=== PATIENT | female | born 1995 | race Two or more races ===

== ENCOUNTER 2019-08-03 04:11 | Inpatient (IN) | payer SELFPAY ==
[2019-08-03] MEDS ORDERED: Nalbuphine 10 MG/1 ML Vial IVPUSH PRN (04:35)
[2019-08-03] MEDS ORDERED: Sodium Chloride 0.9% 10 ML SDV IV PRN (04:35)
[2019-08-03] MEDS ORDERED: Sodium Chloride 0.9% 10 ML Syringe FLUSH PRN (04:35)
[2019-08-03] MEDS ORDERED: Butorphanol 1 MG/ML SDV IVPUSH PRN (04:35)
[2019-08-03] MEDS ORDERED: Tranexamic Acid 1,000 MG in Sodium Chloride 0.9% 100 ML IV PRN (04:35)
[2019-08-03] MEDS ORDERED: Lidocaine 1% 50 ML MDV INJECT PRN (04:35)
[2019-08-03] MEDS ORDERED: Water For Irrigation,Sterile 1,000 ML Container IRR PRN (04:35)
[2019-08-03] MEDS ORDERED: Misoprostol 200 MCG Tab PO PRN (04:35)
[2019-08-03] MEDS ORDERED: Methylergonovine 0.2 MG/1 ML Amp IM PRN (04:35)
[2019-08-03] MEDS ORDERED: Carboprost Tromethamine 250 MCG/1 ML Amp IM PRN (04:35)
[2019-08-03] MEDS ORDERED: Oxytocin/0.9 % Sodium Chloride 30 UNIT/500 ML BAG IV SCH ×2 (04:45→10:30)
[2019-08-03] MEDS ORDERED: Ondansetron 4 MG/2 ML SDV IVPUSH PRN (06:28)
[2019-08-03] MEDS: Lactated Ringers 1,000 ML IV SCH ×2 (08:35→09:36)
--- NOTE | 2019-08-03 09:00 | PCM.LDHP ---
L&D History of Present Illness - General Date of Service: 08/03/19 Admit Problem/Dx: Patient Status Order with Admit Dx/Problem 08/03/19 04:20 Patient Status [ADT] Routine 08/03/19 04:35 Patient Status [ADT] Routine Admission Diagnosis/Problem Admission Diagnosis/Problem -related examination Source of Information: Patient History Limitations: Reports: No Limitations - History of Present Illness Pain Score: 5 Improves with: Reports: None Worsens with: Reports: None Associated Symptoms: Reports: N - Related Data Allergies/Adverse Reactions: Allergies Allergy/AdvReac Type Severity Reaction Status Date / Time No Known Allergies Allergy Verified 08/03/19 04:19 Past Medical History - Past Health History Medical/Surgical History: Denies Medical/Surgical History Social & Family History - Tobacco Use Smoking Status *Q: Never Smoker Second Hand Smoke Exposure: No - Caffeine Use Caffeine Use: Reports: Soda - Recreational Drug Use Recreational Drug Use: No H&P Review of Systems - Review of Systems: Review Of Systems: See Below General: Reports: No Symptoms HEENT: Reports: No Symptoms Pulmonary: Reports: No Symptoms Cardiovascular: Reports: No Symptoms Gastrointestinal: Reports: No Symptoms Genitourinary: Reports: No Symptoms Musculoskeletal: Reports: No Symptoms Skin: Reports: No Symptoms Psychiatric: Reports: No Symptoms Neurological: Reports: No Symptoms Hematologic/Lymphatic: Reports: No Symptoms Immunologic: Reports: No Symptoms L&D Exam - Exam Exam: See Below - Vital Signs Weight: 56.699 kg - OB Specific Fundal Height In cm: 37 Contraction Intensity: Moderate Movement: Active Heart Tones: Present Presentation: Vertex - Teran Score Teran Score Cervix Position: Anterior Teran Score Consistency: Soft Teran Score Effacement: >80% Teran Score Dilation: 3-4 cm Teran Score 's Station: -2 Teran Score Total: 10 - Exam General: Alert, Oriented HEENT: PERRLA, Conjunctiva Clear, EACs Clear, EOMI, Hearing Intact, Mucosa Moist & Volo, Nares Patent, Normal Nasal Septum, Posterior Pharynx Clear, TMs Clear Neck: Supple, Trachea Midline Lungs: Clear to Auscultation, Normal Respiratory Effort Cardiovascular: Regular Rate, Regular Rhythm GI/Abdominal Exam: Normal Bowel Sounds, Soft, Non-Tender, No Organomegaly, No Distention, No Abnormal Bruit, No Mass, Pelvis Stable Rectal Exam: Normal Exam, Normal Rectal Tone Genitourinary: Normal external exam, Normal bimanual exam, Normal speculum exam Back Exam: Normal Inspection, Full Range of Motion Extremities: Normal Inspection, Normal Range of Motion, Non-Tender, No Pedal Edema, Normal Capillary Refill Skin: Warm, Dry, Intact Neurological: Cranial Nerves Intact, Reflexes Equal Bilateral Psychiatric: Alert, Normal Affect, Normal Mood - Patient Data Lab Results Last 24 hrs: Laboratory Results - last 24 hr 08/03/19 08/03/19 Range/Units 04:58 04:58 WBC 7.34 (4.0-11.0) K/uL RBC 3.72 L (4.30-5.90) M/uL Hgb 10.2 L (12.0-16.0) g/dL Hct 31.3 L (36.0-46.0) % MCV 84.1 (80.0-98.0) fL MCH 27.4 (27.0-32.0) pg MCHC 32.6 (31.0-37.0) g/dL RDW Std Deviation 40.4 (28.0-62.0) fl RDW Coeff of Mirtha 13 (11.0-15.0) % Plt Count 184 (150-400) K/uL MPV 10.40 (7.40-12.00) fL Nucleated RBC % 0.0 /100WBC Nucleated RBCs # 0 K/uL Blood Type A POSITIVE Antibody Screen NEGATIVE Result Diagrams: 08/03/19 04:58 Problem List Initiated/Reviewed/Updated: Yes Orders Last 24hrs: Active Orders 24 hr Category Date Time Status Patient Status [ADT] Routine ADT 08/03/19 04:35 Active Heart Tones [RC] CONTINUOUS Care 08/03/19 04:35 Active Non Stress Test [RC] PER UNIT ROUTINE Care 08/03/19 04:20 Active Non Stress Test [RC] PER UNIT ROUTINE Care 08/03/19 04:35 Active May Shower [RC] ASDIRECTED Care 08/03/19 04:35 Active Notify Provider [RC] PRN Care 08/03/19 04:35 Active Up ad Ora [RC] ASDIRECTED Care 08/03/19 04:20 Active Up ad Ora [RC] ASDIRECTED Care 08/03/19 04:35 Active Vaginal Exam [RC] Click to Edit Care 08/03/19 04:20 Active Vaginal Exam [RC] PRN Care 08/03/19 04:35 Active Vital Signs [RC] PER UNIT ROUTINE Care 08/03/19 04:20 Active Vital Signs [RC] PER UNIT ROUTINE Care 08/03/19 04:35 Active Butorphanol [Stadol] Med 08/03/19 04:35 Active 1 mg IVPUSH ASDIRECTED PRN Carboprost Tromethamine [Hemabate DS] Med 08/03/19 04:35 Active 250 mcg IM ASDIRECTED PRN Lactated Ringers [Ringers, Lactated] 1,000 ml Med 08/03/19 04:45 Active IV ASDIRECTED Lidocaine 1% [Xylocaine 1%] Med 08/03/19 04:35 Active 50 ml INJECT ONETIME PRN Methylergonovine [Methergine] Med 08/03/19 04:35 Active 0.2 mg IM ASDIRECTED PRN Nalbuphine [Nubain] Med 08/03/19 04:35 Active 10 mg IVPUSH ASDIRECTED PRN Ondansetron [Zofran] Med 08/03/19 06:28 Active 4 mg IVPUSH Q6H PRN Oxytocin/0.9 % Sodium Chloride [Oxytocin 30 Unit/500 ML Med 08/03/19 04:45 Active -NS] 30 unit in 500 ml IV TITRATE Sodium Chloride 0.9% [Normal Saline] Med 08/03/19 04:35 Active 10 ml IV ASDIRECTED PRN Sodium Chloride 0.9% [Saline Flush] Med 08/03/19 04:35 Active 10 ml FLUSH ASDIRECTED PRN Tranexamic Acid [Cyklokapron] 1,000 mg Med 08/03/19 04:35 Active Sodium Chloride 0.9% [Normal Saline] 100 ml IV ONETIME Water For Irrigation,Sterile [Sterile Water for Med 08/03/19 04:35 Active Irrigation] 1,000 ml IRR ASDIRECTED PRN miSOPROStol [Cytotec] Med 08/03/19 04:35 Active 200 mcg PO ONETIME PRN Scalp Electrode [WOMSER] Per Unit Routine Oth 08/03/19 04:35 Ordered Peripheral IV Insertion Adult [OM.PC] Routine Oth 08/03/19 04:35 Ordered Resuscitation Status Routine Resus Stat 08/03/19 04:20 Ordered Medication Orders Butorphanol Tartrate (Stadol) 1 mg IVPUSH ASDIRECTED PRN PRN Reason: Pain Carboprost Tromethamine (Hemabate Ds) 250 mcg IM ASDIRECTED PRN PRN Reason: Post Hemorrhage Tranexamic Acid 1,000 mg/ (Sodium Chloride) 110 mls @ 660 mls/hr IV ONETIME PRN PRN Reason: Bleeding Lactated Ringer's (Ringers, Lactated) 1,000 mls @ 150 mls/hr IV ASDIRECTED YEIMY Oxytocin/Sodium Chloride (Oxytocin 30 Unit/500 Ml-Ns) 30 unit in 500 mls @ 999 mls/hr IV TITRATE YEIMY Lidocaine HCl (Xylocaine 1%) 50 ml INJECT ONETIME PRN PRN Reason: Laceration repair Methylergonovine Maleate (Methergine) 0.2 mg IM ASDIRECTED PRN PRN Reason: Post Hemorrhage Misoprostol (Cytotec) 200 mcg PO ONETIME PRN PRN Reason: Post Hemorrhage Nalbuphine HCl (Nubain) 10 mg IVPUSH ASDIRECTED PRN PRN Reason: Pain (severe 7-10) Last Admin: 08/03/19 06:04 Dose: 10 mg Ondansetron HCl (Zofran) 4 mg IVPUSH Q6H PRN PRN Reason: Nausea/Vomiting Last Admin: 08/03/19 06:46 Dose: 4 mg Sodium Chloride (Saline Flush) 10 ml FLUSH ASDIRECTED PRN PRN Reason: Keep Vein Open Last Admin: 08/03/19 06:05 Dose: 10 ml Sodium Chloride (Normal Saline) 10 ml IV ASDIRECTED PRN PRN Reason: IV Use Sterile Water (Sterile Water For Irrigation) 1,000 ml IRR ASDIRECTED PRN PRN Reason: delivery Assessment/Plan Comment:: IUP term with SROM in early labor
--- NOTE | 2019-08-03 09:41 | PCM.PREANE ---
Preanesthetic Assessment - Anesthesia/Transfusion/Family Hx Anesthesia History: No Prior Anesthesia Family History of Anesthesia Reaction: No Transfusion History: Prior Transfusion Without Reaction - Review of Systems General: No Symptoms Pulmonary: No Symptoms Cardiovascular: No Symptoms Gastrointestinal: No Symptoms Neurological: No Symptoms Other: Reports: None - Physical Assessment Height: 5 ft Weight: 56.699 kg ASA Class: 2 Mental Status: Alert & Oriented x3 Airway Class: Mallampati = 2 Dentition: Reports: Normal Dentition Thyro-Mental Finger Breadths: 2 Mouth Opening Finger Breadths: 2 ROM/Head Extension: Full Lungs: Clear to Auscultation, Normal Respiratory Effort Cardiovascular: Regular Rate, Regular Rhythm - Lab Values: Laboratory Last Values WBC 7.34 K/uL (4.0-11.0) 08/03/19 04:58 RBC 3.72 M/uL (4.30-5.90) L 08/03/19 04:58 Hgb 10.2 g/dL (12.0-16.0) L 08/03/19 04:58 Hct 31.3 % (36.0-46.0) L 08/03/19 04:58 MCV 84.1 fL (80.0-98.0) 08/03/19 04:58 MCH 27.4 pg (27.0-32.0) 08/03/19 04:58 MCHC 32.6 g/dL (31.0-37.0) 08/03/19 04:58 RDW Std Deviation 40.4 fl (28.0-62.0) 08/03/19 04:58 RDW Coeff of Mirtha 13 % (11.0-15.0) 08/03/19 04:58 Plt Count 184 K/uL (150-400) 08/03/19 04:58 MPV 10.40 fL (7.40-12.00) 08/03/19 04:58 Nucleated RBC % 0.0 /100WBC 08/03/19 04:58 Nucleated RBCs # 0 K/uL 08/03/19 04:58 Blood Type A POSITIVE 08/03/19 04:58 Antibody Screen NEGATIVE 08/03/19 04:58 - Allergies Allergies/Adverse Reactions: Allergies Allergy/AdvReac Type Severity Reaction Status Date / Time No Known Allergies Allergy Verified 08/03/19 04:19 - Acknowledgements Anesthesia Type Planned: Epidural Pt an Appropriate Candidate for the Planned Anesthesia: Yes Alternatives and Risks of Anesthesia Discussed w Pt/Guardian: Yes Pt/Guardian Understands and Agrees with Anesthesia Plan: Yes PreAnesthesia Questionnaire - Past Health History Medical/Surgical History: Denies Medical/Surgical History HEENT History: Reports: None Cardiovascular History: Reports: Other (See Below) (Tachycardia during 1st , unsure of etiology) Respiratory History: Reports: None Gastrointestinal History: Reports: GERD Genitourinary History: Reports: None 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 Para: 1 LMP (Approximate): Musculoskeletal History: Reports: None Neurological History: Reports: None Psychiatric History: Reports: Anxiety Endocrine/Metabolic History: Reports: None Hematologic History: Reports: Anemia Immunologic History: Reports: None Oncologic (Cancer) History: Reports: None Dermatologic History: Reports: None - Infectious Disease History Infectious Disease History: Reports: None - SUBSTANCE USE Smoking Status *Q: Never Smoker Second Hand Smoke Exposure: No Recreational Drug Use History: No - CURRENT (IN HOUSE) MEDS Current Meds: Current Medications Butorphanol Tartrate (Stadol) 1 mg IVPUSH ASDIRECTED PRN PRN Reason: Pain Carboprost Tromethamine (Hemabate Ds) 250 mcg IM ASDIRECTED PRN PRN Reason: Post Hemorrhage Tranexamic Acid 1,000 mg/ (Sodium Chloride) 110 mls @ 660 mls/hr IV ONETIME PRN PRN Reason: Bleeding Lactated Ringer's (Ringers, Lactated) 1,000 mls @ 150 mls/hr IV ASDIRECTED YEIMY Oxytocin/Sodium Chloride (Oxytocin 30 Unit/500 Ml-Ns) 30 unit in 500 mls @ 999 mls/hr IV TITRATE YEIMY Lidocaine HCl (Xylocaine 1%) 50 ml INJECT ONETIME PRN PRN Reason: Laceration repair Methylergonovine Maleate (Methergine) 0.2 mg IM ASDIRECTED PRN PRN Reason: Post Hemorrhage Misoprostol (Cytotec) 200 mcg PO ONETIME PRN PRN Reason: Post Hemorrhage Nalbuphine HCl (Nubain) 10 mg IVPUSH ASDIRECTED PRN PRN Reason: Pain (severe 7-10) Last Admin: 08/03/19 06:04 Dose: 10 mg Ondansetron HCl (Zofran) 4 mg IVPUSH Q6H PRN PRN Reason: Nausea/Vomiting Last Admin: 08/03/19 06:46 Dose: 4 mg Sodium Chloride (Saline Flush) 10 ml FLUSH ASDIRECTED PRN PRN Reason: Keep Vein Open Last Admin: 08/03/19 06:05 Dose: 10 ml Sodium Chloride (Normal Saline) 10 ml IV ASDIRECTED PRN PRN Reason: IV Use Sterile Water (Sterile Water For Irrigation) 1,000 ml IRR ASDIRECTED PRN PRN Reason: delivery Discontinued Medications Fentanyl/Bupivacaine HCl ([id number]-[id number]-Qf 2 Mcg/Ml-0.125%) Confirm Administered Dose 100 mls @ as directed .ROUTE .[employer]-MED ONE Stop: 08/03/19 09:17
[2019-08-03] MEDS ORDERED: Terbutaline 1 MG/ML SDV SUBCUT PRN (10:23)
[2019-08-03] MEDS ORDERED: Ondansetron 4 MG/2 ML SDV IVPUSH ONE (11:10)
[2019-08-03] MEDS ORDERED: Docusate Sodium 100 MG Cap PO PRN (14:18)
[2019-08-03] MEDS ORDERED: Lanolin 100% Cream 7 GM Tube TOP PRN (14:18)
[2019-08-03] MEDS ORDERED: Acetaminophen 500 MG Tab PO PRN ×2 (14:18)
[2019-08-03] MEDS ORDERED: Benzocaine/Menthol 20%-0.5% Spray 78 GM Cannister TOP PRN (14:18)
[2019-08-03] MEDS ORDERED: Ibuprofen 400 MG Tab PO PRN (14:18)
[2019-08-03] MEDS ORDERED: Witch Hazel Medicated Pads 40/Jar TOP PRN (14:18)
[2019-08-03] MEDS ORDERED: Bisacodyl 10 MG Supp RECTAL PRN (14:18)
--- NOTE | 2019-08-03 14:49 | OR ---
SURGEON: Nick Cesar MD DATE OF PROCEDURE: 08/03/2019 Ms. Willett is 24-year-old primigravida, she is 37+ weeks. She is followed in our clinic primarily by me. The patient did have no complication. Her GBS status is negative. She was admitted in the early labor with spontaneous rupture of the membrane early this morning. At the time of admission, she was 2 cm to 3 cm. Her spontaneous rupture of the membrane was confirmed. Her GBS status was negative. The patient was admitted and she started anca on her own and she progressed to 4 cm complete vertex and -2 station. The patient had at that time epidural anesthesia for labor analgesia. She required some Pitocin for labor augmentation, and then after that she progressed rather rapidly to 6 and then complete and then she was able to accomplish normal spontaneous vaginal delivery of a male fetus, cried immediately. score reported to be 8 and 9. Placenta delivered spontaneous complete and intact without any problem. There was no need for episiotomy. There was no labial, perineal, or vaginal laceration. One nuchal cord was noted at the time of admission, but it was not tight. Estimated blood losswas 250 to 300 mL. heart rate was category 1 through the entire process of labor. There was no complication in this labor and delivery. BOAZ / TEENA /[id number]
[2019-08-03] MEDS: Ibuprofen 800 MG Tab PO PRN (16:39)
[2019-08-04] MEDS: oxyCODONE 5 MG Tab PO PRN ×2 (00:56→05:21)
[2019-08-04] MEDS: Ibuprofen 800 MG Tab PO PRN ×2 (07:52→14:41)
--- NOTE | 2019-08-04 08:51 | PCM.PNPP ---
- General Info Date of Service: 08/04/19 Functional Status: Reports: Pain Controlled - Review of Systems General: Reports: No Symptoms HEENT: Reports: No Symptoms Pulmonary: Reports: No Symptoms Cardiovascular: Reports: No Symptoms Gastrointestinal: Reports: No Symptoms Genitourinary: Reports: No Symptoms Musculoskeletal: Reports: No Symptoms Skin: Reports: No Symptoms Neurological: Reports: No Symptoms Psychiatric: Reports: No Symptoms - General Info Date of Service: 08/04/19 - Patient Data Vital Signs - Most Recent: Last Vital Signs Temp 36.2 C 08/04/19 04:12 Pulse 64 08/04/19 04:12 Resp 16 08/04/19 04:12 BP 95/53 L 08/04/19 04:12 Pulse Ox 97 08/04/19 04:12 Weight - Most Recent: 56.699 kg Lab Results - Last 24 Hours: Laboratory Results - last 24 hr 08/04/19 Range/Units 06:18 Hgb 9.3 L (12.0-16.0) g/dL Hct 29.0 L (36.0-46.0) % Med Orders - Current: Current Medications Acetaminophen (Tylenol Extra Strength) 500 mg PO Q4H PRN PRN Reason: Pain Acetaminophen (Tylenol Extra Strength) 1,000 mg PO Q4H PRN PRN Reason: Pain Last Admin: 08/03/19 19:33 Dose: 1,000 mg Benzocaine/Menthol (Dermoplast Pain Relief 20%-0.5% [place]) 78 gm TOP ASDIRECTED PRN PRN Reason: Perineal Comfort Measure Bisacodyl (Dulcolax) 10 mg RECTAL ONETIME PRN PRN Reason: Constipation Butorphanol Tartrate (Stadol) 1 mg IVPUSH ASDIRECTED PRN PRN Reason: Pain Carboprost Tromethamine (Hemabate Ds) 250 mcg IM ASDIRECTED PRN PRN Reason: Post Hemorrhage Docusate Sodium (Colace) 100 mg PO BID PRN PRN Reason: Constipation Emollient Ointment (Lansinoh Hpa) 0 gm TOP ASDIRECTED PRN PRN Reason: Sore Nipples Tranexamic Acid 1,000 mg/ (Sodium Chloride) 110 mls @ 660 mls/hr IV ONETIME PRN PRN Reason: Bleeding Lactated Ringer's (Ringers, Lactated) 1,000 mls @ 150 mls/hr IV ASDIRECTED YEIMY Last Infusion: 08/03/19 10:30 Dose: 150 mls/hr Oxytocin/Sodium Chloride (Oxytocin 30 Unit/500 Ml-Ns) 30 unit in 500 mls @ 999 mls/hr IV TITRATE YEIMY Oxytocin/Sodium Chloride (Oxytocin 30 Unit/500 Ml-Ns) 30 unit in 500 mls @ 2 mls/hr IV TITRATE YEIMY; Protocol Last Titration: 08/03/19 12:35 Dose: 6 munits/min, 6 mls/hr Ibuprofen (Motrin) 400 mg PO Q4H PRN PRN Reason: Pain Ibuprofen (Motrin) 800 mg PO Q6H PRN PRN Reason: Pain Last Admin: 08/04/19 07:52 Dose: 800 mg Lidocaine HCl (Xylocaine 1%) 50 ml INJECT ONETIME PRN PRN Reason: Laceration repair Methylergonovine Maleate (Methergine) 0.2 mg IM ASDIRECTED PRN PRN Reason: Post Hemorrhage Misoprostol (Cytotec) 200 mcg PO ONETIME PRN PRN Reason: Post Hemorrhage Nalbuphine HCl (Nubain) 10 mg IVPUSH ASDIRECTED PRN PRN Reason: Pain (severe 7-10) Last Admin: 08/03/19 06:04 Dose: 10 mg Ondansetron HCl (Zofran) 4 mg IVPUSH Q6H PRN PRN Reason: Nausea/Vomiting Last Admin: 08/03/19 06:46 Dose: 4 mg Oxycodone HCl (Oxycodone) 5 mg PO Q2H PRN PRN Reason: Pain Last Admin: 08/04/19 05:21 Dose: 5 mg Sodium Chloride (Saline Flush) 10 ml FLUSH ASDIRECTED PRN PRN Reason: Keep Vein Open Last Admin: 08/03/19 06:05 Dose: 10 ml Sodium Chloride (Normal Saline) 10 ml IV ASDIRECTED PRN PRN Reason: IV Use Sterile Water (Sterile Water For Irrigation) 1,000 ml IRR ASDIRECTED PRN PRN Reason: delivery Terbutaline Sulfate (Brethine) 0.25 mg SUBCUT ASDIRECTED PRN PRN Reason: Tacysystole Witch Radha (Tucks) 1 pad TOP ASDIRECTED PRN PRN Reason: comfort care Discontinued Medications Fentanyl/Bupivacaine HCl ([id number]-[id number]-Ul 2 Mcg/Ml-0.125%) Confirm Administered Dose 100 mls @ as directed .ROUTE .STK-MED ONE Stop: 08/03/19 09:17 Last Admin: 08/04/19 07:13 Dose: Not Given Ondansetron HCl (Zofran) 4 mg IVPUSH ONETIME ONE Stop: 08/03/19 11:11 Last Admin: 08/03/19 11:20 Dose: 4 mg - Infant Interaction Disposition, : Bryant in Room with Family Interaction: Holding Infant Infant Feeding: Attempted ; Nursed Fair/Poor Support Person: - Recovery Exam Fundal Tone: Firm Fundal Level: 1 Fingerbreadths Below Umbilicus Fundal Placement: Midline Lochia Amount: Small Lochia Color: Rubra/Red Perineum Description: Intact, Minimal Bruising/Swelling Episiotomy/Laceration: None Bladder Status: Voiding Urinary Elimination: Voided - Exam General: Alert, Oriented HEENT: Pupils Equal Neck: Supple Lungs: Clear to Auscultation, Normal Respiratory Effort Cardiovascular: Regular Rate, Regular Rhythm GI/Abdominal Exam: Normal Bowel Sounds, Soft, Non-Tender, No Organomegaly, No Distention, No Abnormal Bruit, No Mass, Pelvis Stable Extremities: Normal Inspection, Normal Range of Motion, Non-Tender, No Pedal Edema, Normal Capillary Refill Skin: Warm, Dry, Intact Wound/Incisions: Healing Well Neurological: No New Focal Deficit Psy/Mental Status: Alert, Normal Affect, Normal Mood - Problem List Review Problem List Initiated/Reviewed/Updated: Yes - My Orders Last 24 Hours: My Active Orders 08/03/19 10:23 Bedrest Bathroom Privileges [RC] ASDIRECTED Notify Provider [RC] STAT Vital Signs [RC] PER UNIT ROUTINE Terbutaline [Brethine] 0.25 mg SUBCUT ASDIRECTED PRN 08/03/19 10:30 Oxytocin/0.9 % Sodium Chloride [Oxytocin 30 Unit/500 ML-NS] 30 unit in 500 ml IV TITRATE 08/03/19 14:18 Patient Status [ADT] Routine May Shower [RC] ASDIRECTED Up ad Ora [RC] ASDIRECTED Vital Signs [RC] PER UNIT ROUTINE Acetaminophen [Tylenol Extra Strength] 1,000 mg PO Q4H PRN Acetaminophen [Tylenol Extra Strength] 500 mg PO Q4H PRN Benzocaine/Menthol [Dermoplast Pain Relief 20%-0.5% [place]] 78 gm TOP ASDIRECTED PRN Bisacodyl [Dulcolax] 10 mg RECTAL ONETIME PRN Docusate Sodium [Colace] 100 mg PO BID PRN Ibuprofen [Motrin] 400 mg PO Q4H PRN Ibuprofen [Motrin] 800 mg PO Q6H PRN Lanolin [Lansinoh HPA] See Dose Instructions TOP ASDIRECTED PRN Witch Radha [Tucks] 1 pad TOP ASDIRECTED PRN oxyCODONE 5 mg PO Q2H PRN Assess Lochia [WOMSER] Per Unit Routine Assess Uterine Involution [WOMSER] Per Unit Routine Peripheral IV Discontinue [OM.PC] Routine 08/04/19 Breakfast Regular Diet [DIET] - Plan Plan:: IUP term with SROM in early labor
--- NOTE | 2019-08-04 12:14 | PCM48HPAN ---
Post Anesthesia Note - EVALUATION WITHIN 48HRS OF ANESTHETIC Vital Signs in Normal Range: Yes Patient Participated in Evaluation: Yes Respiratory Function Stable: Yes Airway Patent: Yes Cardiovascular Function Stable: Yes Hydration Status Stable: Yes Pain Control Satisfactory: Yes Nausea and Vomiting Control Satisfactory: Yes Mental Status Recovered: Yes Vital Signs: Last Vital Signs Temp 97.1 F 08/04/19 04:12 Pulse 64 08/04/19 04:12 Resp 16 08/04/19 04:12 BP 95/53 L 08/04/19 04:12 Pulse Ox 97 08/04/19 04:12
== END 2019-08-04 16:45 | disposition home or self-care (01) | DRG 807 ==
LOC: MW.OBCHECK 04:11 → MW.OB 04:12 → MW.OBCHECK 04:35 → MW.OB 04:35 → OBSVTOIN 14:10 → MW.OB 17:30
PROVIDERS: ADMIT Obstetrics & Gynecology; ATTEND Obstetrics & Gynecology
PROC: 10E0XZZ Delivery of Products of Conception, External Approach (ICD-10-PCS; principal; 2019-08-03)
DX: O69.81X0 Labor and delivery complicated by cord around neck, without compression, not applicable or unspecified (principal); Z37.0 Single live birth; Z3A.37 37 weeks gestation of pregnancy
CPT/HCPCS: 36415; 51702; 59025; 59409; 85014; 85018; 85027; 86850; 86900; 86901; A9270-GY; J2300; J2405; J2590; J7120